=== PATIENT | female | born 1970 | race Caucasian/White ===

== ENCOUNTER → 2020-10-12 | Outpatient (CLI) | payer BC | LOC: MC.RAD 14:45 | DX: Z12.31 Encounter for screening mammogram for malignant neoplasm of breast (principal) ==

== ENCOUNTER → 2022-12-16 | Outpatient (CLI) | payer BC | LOC: MC.RAD 13:11 | DX: Z12.31 Encounter for screening mammogram for malignant neoplasm of breast (principal) ==

== ENCOUNTER 2024-03-18 17:07 | Emergency (ER) | payer BC ==
[~2024-03-18] VITALS: Ht 157.5 cm; Wt 83.2 kg
[~2024-03-18 17:07] MED LIST: CELEXA40 MG PO; DESYREL 50MG50 MG PO; GLUCOPHAGE XR500 M1 PO; PRINIVIL20 MG PO; WELLBUTRIN XL150 MG PO
[2024-03-18 17:09] VITALS: TEMP 98.1
[2024-03-18] MEDS ORDERED: hydrOXYzine HCl 25 MG TAB PO ONE (17:30)
[2024-03-18 18:31] LABS: BASO % 0.4 % (0.0-2.0); EOS # 0.1 K/mm3 (0.0-0.7); EOS % 1.2 % (0.0-4.0); GRAN % 72.7 % (42.2-75.2); HEMOGLOBIN 13.1 g/dl (12.5-16.0); MEAN CELL VOLUME 86 fl (80.0-100.0); MEAN CORPUSCULAR HEMOGLOBIN 28 pg (27-31); MEAN CORPUSCULAR HGB CONC 33 g/dl (33.0-37.0); MEAN PLATELET VOLUME 10.2 fl (7.4-10.4); MONO # 0.4 K/mm3 (0.1-0.6); MONO % 4.5 % (1.7-9.3); PLATELET COUNT 165 K/mm3 (130-400); RED BLOOD COUNT 4.63 M/mm3 (4.10-5.30); REDCELL DISTRIBUTION WIDTH-CV 13.6 % (11.5-14.5)
[2024-03-18 18:34] LABS: ALANINE AMINOTRANSFERASE 15 U/L (0-55); ALBUMIN 3.8 g/dL (3.5-5.0); ALKALINE PHOSPHATASE 87 U/L (40-150); ANION GAP 9 mmol/L (7-16); AST,SGOT 19 U/L (5-34); BILIRUBIN,TOTAL 0.4 mg/dL (0.2-1.2); BLOOD UREA NITROGEN 18 mg/dL (10-20); CALCIUM 9.6 mg/dL (8.4-10.2); CHLORIDE 103 mEq/L (98-107); CREATININE, serum 0.89 mg/dL (0.57-1.11); GLUCOSE 128 mg/dL (70-99); LIPASE 33 U/L (8-78); POTASSIUM 4.1 mEq/L (3.5-4.5); SODIUM 139 mEq/L (136-145); TOTAL PROTEIN 7.3 g/dl (6.2-8.1)
[2024-03-18 18:41] LABS: TROPONIN-I < 0.010 ng/mL (0.00-0.033)
[2024-03-18] MEDS ORDERED: Ketorolac 30 MG/ML VIAL IV ONE (19:15)
[2024-03-18 20:00] VITALS: BP 138/84; PULSE 77
== END 2024-03-18 20:00 | disposition home or self-care (01) ==
LOC: COL.ER 17:07
PROVIDERS: Nurse Practitioner Primary Care
DX: R07.89 Other chest pain (principal); F41.9 Anxiety disorder, unspecified; I10 Essential (primary) hypertension; Z79.899 Other long term (current) drug therapy
CPT/HCPCS: J1885